=== PATIENT | male | born 1975 | race Caucasian/White ===

== ENCOUNTER 2024-06-09 08:48 | Day surgery (SDC) | payer OTHER, SELFPAY ==
--- NOTE | 2024-06-09 08:58 | P.HPUD_ITS ---
Surgery/Procedure H&P Update DATE OF PROCEDURE: June 09, 2024 DATE H&P PERFORMED: 05/24/24 H&P UPDATE INFORMATION: I have reviewed H&P completed within last 30 days, I have examined patient prior to procedure, No changes to prior documentation and H&P is in [facility] EMR on date indicated PLANNED PROCEDURE: Operation Date: 06/09/24 10:10 Proposed Procedures p Colonoscopy 44948, G0121, Z12.11(Not Applicable) - Bhavik Villafuerte MD
[2024-06-09 08:59] VITALS: BP 116/96; PULSE 83; RESP 16; TEMP 36.2; O2SAT 96
[2024-06-09] MEDS: sodium chloride 0.9% 500 ML 15 ML IV (09:06)
--- NOTE | 2024-06-09 09:56 | ANES.PREANE2 ---
Pre-Anesthetic Assessment Height/Weight: Height 1.63 m Temp Pulse Resp BP Pulse Ox O2 Del Method 97.2 F L 83 16 116/96 96 Room Air 06/09/24 08:59 06/09/24 08:59 06/09/24 08:59 06/09/24 08:59 06/09/24 08:59 06/09/24 08:59 Preop Diagnosis: screening Operation Date: 06/09/24 10:10 Proposed Procedures p Colonoscopy 88648, G0121, Z12.11(Not Applicable) - Bhavik Villafuerte MD Familial anesthetic complications: none Was Beta Cricket taken within 24 hours: N/A Was Clonidine taken within 24 hours: N/A Last intake: Intake Last Liquid Date 06/08/24 Last Liquid Time 21:00 Last Solid Date 06/07/24 Last Solid Time 18:00 Social No alcohol and No tobacco Exam alert and oriented x 3 Airway Submandibular: within normal limits Cervical ROM: within normal limits Mallampati: Class II Dentition: full History/ROS No significant complaints GI Gastroesophageal Reflux Disease Anesthetic Plan ASA status: 2 Anesthesia: Anesthesia Evaluation and MAC Medications/Allergies Home Medications ?Medication ?Instructions ?Recorded ?Confirmed ?Last Taken ?Type famotidine 20 mg tablet 20 mg PO DAILY 03/09/24 06/09/24 06/03/24 History ondansetron 8 mg disintegrating 8 mg PO Q8H PRN nausea and 05/24/24 06/09/24 Unknown Rx tablet vomiting #3 tabs Allergies Allergy/AdvReac Type Severity Reaction Status Date / Time No Known Allergies Allergy Verified 06/06/24 10:14 Current Medications Generic Name Dose Route Start Last Admin Trade Name Antwonq PRN Reason Stop Dose Admin Sodium Chloride 500 mls @ 15 mls/hr 06/09/24 08:50 06/09/24 09:06 Sodium Chloride 0.9% IV 06/10/24 08:49 15 mls/hr .Q24H PRN Administration COLONOSCOPY FLUIDS PFSH Anesthesia Social History (Updated 03/09/24 @ 12:21 by Anastasia Valentino LPN) Smoking and tobacco/nicotine status: never used tobacco/nicotine Second hand smoke exposure: No Alcohol intake: never Substance/Drug Use: never Data Anesthesia Cardiac Studies: No Data to Display
[2024-06-09 10:40] VITALS: BP 101/74; PULSE 81; RESP 18; TEMP 36.1; O2SAT 97
[2024-06-09 11:01] VITALS: BP 111/79; PULSE 72; RESP 18; O2SAT 95
--- NOTE | 2024-06-09 11:32 | ANE.PACU2 ---
Inpatient post-anesthesia follow up: Airway intact: Yes Vital signs: Temperature 97 F Pulse Rate 72 Respiratory Rate 18 Blood Pressure 111/79 Pulse Oximetry 95 Oxygen Delivery Me thod Room Air Oxygen Flow Rate Fraction of Inspir ed Oxygen Hydration adequate: Yes Nausea and vomiting: No Pain level: 1 Mental status: Baseline
== END 2024-06-09 11:32 | disposition home or self-care (01) ==
PROVIDERS: PCP Family Medicine; Visit Provider Surgery
PROC: 0DJD8ZZ Inspection of Lower Intestinal Tract, Via Natural or Artificial Opening Endoscopic (ICD-10-PCS; CPT 45378; principal; 2024-06-09 10:10)
DX: Z12.11 Encounter for screening for malignant neoplasm of colon (principal); D12.2 Benign neoplasm of ascending colon; K62.1 Rectal polyp; Z79.899 Other long term (current) drug therapy
CPT/HCPCS: 45380; 45385; 88305; J2704; J7040